=== PATIENT | female | born 1990 | race Caucasian/White ===

== ENCOUNTER 2019-03-24 07:05 | Inpatient (IN) | payer BC ==
[~2019-03-24] VITALS: Ht 165.1 cm; Wt 94.1 kg
[2019-03-24] VITALS (55 sets, daily range): BP systolic 118–180; BP diastolic 59–99; PULSE 67–126; TEMP 97.8–99.8
--- NOTE | 2019-03-24 06:55 | NUR ---
0655: Patient ambulatory onto unit with at side for scheduled induction of labor. Oriented to room and plan of care. Patient changes into gown. UA collected per order. 0705: EFMs on, VS taken. Patient reports being very anxious. Reports good movement and occasional tightening. Denies regular contractions, vaginal bleeding, or leaking of fluids. 0715: IV started to left hand. Labs drawn. LR infusing. 0735: at bedside. Plan of care discussed. SVE /-3. 0740: Pitocin started per protocol.
[2019-03-24] MEDS ORDERED: CALCIUM WITH D31 CTB (07:29)
[2019-03-24] MEDS ORDERED: PRENATAL VITAMI1 TA3 PO (07:29)
[2019-03-24] MEDS ORDERED: NATURAL IRON65 MG (07:30)
[2019-03-24 07:57] LABS: COLLECTION METHOD CLEAN CATCH
[2019-03-24 08:04] LABS: BASO % 0.3 % (0.0-2.0); EOS # 0.1 (0.0-0.7); GRAN # 7.5 (1.4-6.5); GRAN % 70.9 % (42.2-75.2); HEMOGLOBIN 11.7 g/dl (12.5-16.0); LYMPH # 1.9 (1.2-3.4); MEAN CELL VOLUME 86 fl (80.0-100.0); MEAN CORPUSCULAR HEMOGLOBIN 30 pg (27.0-31.0); MEAN CORPUSCULAR HGB CONC 36 g/dl (33.0-37.0); MEAN PLATELET VOLUME 11.7 fl (7.4-10.4); MONO % 9.5 % (1.7-9.3); PLATELET COUNT 264 K/mm3 (130-400); RED BLOOD COUNT 3.85 M/mm3 (4.10-5.30); REDCELL DISTRIBUTION WIDTH-CV 13.6 % (11.5-14.5)
[2019-03-24 08:14] LABS: ALBUMIN 3.5 gm/dL (3.5-5.0); BILIRUBIN,TOTAL 0.2 mg/dL (0.0-1.0); CALCIUM 8.9 mg/dL (8.4-10.2); CREATININE, serum 0.57 (0.52-1.25); TOTAL PROTEIN 6.9 gm/dL (6.4-8.2)
[2019-03-24 08:16] LABS: PH 7 (5-8); URINE APPEARANCE Hazy; URINE BACTERIA Rare /hpf; URINE BILIRUBIN Negative (NEGATIVE); URINE BLOOD Negative (NEGATIVE); URINE COLOR Yellow; URINE GLUCOSE Negative (NEGATIVE); URINE KETONE Negative (NEGATIVE); URINE LEUKOCYTE ESTERASE 1+ (NEGATIVE); URINE NITRATE Negative (NEGATIVE); URINE PROTEIN(semi-quant) Negative (NEGATIVE); URINE RBC 0-2 /hpf; URINE UROBILINOGEN Negative (NEGATIVE)
--- NOTE | 2019-03-24 08:35 | NUR ---
to bedside. Vertex position verified by ultrasound. Patient reports tightening with contractions. Denies needs. at bedside. Call light within reach.
--- NOTE | 2019-03-24 09:00 | NUR ---
Patient visiting with and [id number] at bedside. Reports continued tightening but denies pain with contractions. Denies needs at this time.
--- NOTE | 2019-03-24 09:30 | NUR ---
Patient up to bathroom. Standing at bedside. Reports continued tightening, denies pain. Call light within reach.
--- NOTE | 2019-03-24 10:35 | NUR ---
Patient visiting with family at bedside. Reports tightening but continues to deny pain. Call light within reach.
--- NOTE | 2019-03-24 12:20 | NUR ---
to bedside. AROM at 1222, moderate amount of clear fluid noted. SVE 3/-3 per provider. Pericare performed. Reports occasional tightening. Plan of care discussed. Questions answered. and [id number] remain at bedside. Call light within reach.
--- NOTE | 2019-03-24 14:05 | NUR ---
1320: Patient requesting epidural. Will notify Mya VASQUEZ. 1350: Mya VASQUEZ on unit. Patient sitting up for epidural placement. 1357: Lidocaine. 1359: Epidural Catheter. 1400: Test Dose given by Mya VASQUEZ, no adverse reactions noted. 1405: Patient repositioned to left tilt. Plan of care discussed.
--- NOTE | 2019-03-24 14:35 | NUR ---
Patient comfortable with epidural. Parker catheter placed. SVE /-2. Patient repositioned to right lateral with peanut ball in place. Denies pain. Encouraged to rest. and [id number] at bedside. Call light within reach.
--- NOTE | 2019-03-24 16:00 | NUR ---
Patient resting comfortably with family at bedside. SVE 4-5/80/-2. Repositioned to left lateral with peanut ball in place. Call light within reach.
--- NOTE | 2019-03-24 16:45 | NUR ---
Patient calls out reporting pain in lower abdomen with contractions. Patient pushes epidural button. SVE 5/-2. Head of bed elevated, patient to left tilt with peanut ball in place.
--- NOTE | 2019-03-24 18:00 | NUR ---
RN to bedside. Patient reports pain with contractions, states she has pushed epidural button x3 times. SVE 9/100/0. Temperature 99.8. Patient repositioned to right lateral with peanut ball in place, head of bed elevated. Will notify Mya VASQUEZ about patient pain level and notify about FHR and vital signs.
--- NOTE | 2019-03-24 18:25 | NUR ---
Bedside report to Adriana MONTANO to assume care of patient at this time. Patient crying. States pain is improved with contractions but that she feels very anxious. Will continue to monitor.
--- NOTE | 2019-03-24 18:35 | NUR ---
C/O INCREASED PELVIC PRERSSURE. SVE =[address] ST[address] COMPLETE[address] PIT OFF [address] HAYES CALLED TO ATTEND. BIJAL SCRUB NSY STAFF NOTIIFEID TO ATTEND. SPOUSE AND MOTHER IN LAW ATTNETIVE 1907 BED APART FOR DELIVERY PUSHES WELL WITH ENCOURAGEMENT/ PIT OM AT 20 MU 1910 FEMAL
--- NOTE | 2019-03-24 21:55 | NUR ---
ASSIT TO BR UNABLE TO VOID- LOCHIA WNL. AMBULATES TO 208 WITH FAMILY AND BABY EASILY. OREIENTED TO ROOM. EDUCATION PACET REVIEWED.
[2019-03-25 02:25] VITALS: BP 132/78; PULSE 81; TEMP 97.9
[2019-03-25] MEDS ORDERED: IBU600 MG PO (06:41)
[2019-03-25] MEDS ORDERED: PERCOCET 325 MG1 TA2 PO (06:42)
[2019-03-25 06:52] LABS: HEMOGLOBIN 10.2 g/dl (12.5-16.0)
[2019-03-25 07:00] VITALS: BP 145/80; PULSE 80; TEMP 98
[2019-03-25 07:12] LABS: HEMATOCRIT 28.9 % (37.0-47.0)
--- NOTE | 2019-03-25 10:28 | NUR ---
Initial visit; Patient thanked Record Cutter for offering congratulations and God's blessings for the of her daughter. Record Cutter thanked family for choosing [facility].
[2019-03-25 15:56] VITALS: BP 134/72; PULSE 90; TEMP 97.9
[2019-03-25 19:30] VITALS: BP 144/67; PULSE 102; TEMP 98.8
--- NOTE | 2019-03-26 06:32 | NUR ---
REPORT RECEIVED FROM OFF GOING RN, ZE Gonzalez. CARE TAKEN OVER BY THIS RN.
[2019-03-26 08:00] VITALS: BP 131/66; PULSE 95; TEMP 97.6
== END 2019-03-26 14:00 | disposition home or self-care (01) | DRG 807 ==
LOC: OB 07:05 → LDR 07:05 → OB 22:00
PROVIDERS: ADMIT Obstetrics & Gynecology
PROC: 10E0XZZ Delivery of Products of Conception, External Approach (ICD-10-PCS; principal; 2019-03-24)
PROC: 0KQM0ZZ Repair Perineum Muscle, Open Approach (ICD-10-PCS; 2019-03-24)
PROC: 3E033VJ Introduction of Other Hormone into Peripheral Vein, Percutaneous Approach (ICD-10-PCS; 2019-03-24)
DX: O13.4 Gestational [pregnancy-induced] hypertension without significant proteinuria, complicating childbirth (principal); Z37.0 Single live birth; Z3A.40 40 weeks gestation of pregnancy; O70.1 Second degree perineal laceration during delivery; O36.8930 Maternal care for other specified fetal problems, third trimester, not applicable or unspecified
CPT/HCPCS: J2590; J7120